=== PATIENT | female | born 1965 | race Hispanic/Latino ===

== ENCOUNTER 2017-05-01 20:40 | Emergency (ER) | payer MEDICAID ==
[2017-05-01] MEDS ORDERED: ACETAMINOPHEN EXTRA STRENGTH 500 MG TABLET ONE (21:32)
[2017-05-01] MEDS ORDERED: KETOROLAC TROMETHAMINE 60 MG/2 ML VIAL ONE (21:32)
[2017-05-01] MEDS ORDERED: DEXAMETHASONE SOD PHOSPHATE 10MG/ML 1ML VIAL ONE (21:32)
== END 2017-05-01 22:33 | disposition home or self-care (01) ==
LOC: EDH 20:40
DX: J10.1 Influenza due to other identified influenza virus with other respiratory manifestations (principal); Z98.51 Tubal ligation status
CPT/HCPCS: 96372 ×2; 99284; J1100; J1885

== ENCOUNTER 2019-05-05 19:45 | Emergency (ER) | payer MEDICAID ==
[2019-05-05 21:06] LABS: APPEARANCE,URINE Cloudy (CLEAR); BILIRUBIN,URINE Negative (NEGATIVE); COLOR,URINE Yellow (YELLOW); GLUCOSE, URINE (UA) TRACE mg/dL (NEGATIVE); KETONES,URINE Negative (NEGATIVE); LEUKOCYTE ESTERASE ,URINE Negative (NEGATIVE); NITRATE,URINE Negative (NEGATIVE); OCCULT BLOOD,URINE Negative (NEGATIVE); PROTEIN,URINE Negative (NEGATIVE); UROBILINOGEN,URINE 0.2 mg/dL (0.2-1.0)
[2019-05-05 21:12] LABS: HCG,QUAL RESULT NEGATIVE (NEGATIVE)
[2019-05-05 21:29] LABS: CALCIUM OXALATE CRYSTALS,UR Moderate /LPF (None Seen)
[2019-05-05 21:31] LABS: BACTERIA,URINE Few /HPF (None Seen); RBC,URINE None Seen /HPF (0-1); WBC,URINE 0-1 /HPF (0-1)
== END 2019-05-05 21:28 | disposition home or self-care (01) ==
LOC: EDH 19:45
DX: M54.5 Low back pain (principal)
CPT/HCPCS: 81001; 81025

== ENCOUNTER 2019-05-06 22:07 | Emergency (ER) | payer MEDICAID | END 2019-05-07 00:06 | disposition home or self-care (01) | LOC: EDH 22:07 | DX: B34.9 Viral infection, unspecified (principal); Z98.890 Other specified postprocedural states | CPT/HCPCS: 87804; 87880 ==

== ENCOUNTER 2022-02-27 21:17 | Emergency (ER) | payer MEDICAID ==
[~2022-02-27] VITALS: Ht 160 cm; Wt 76.7 kg
[~2022-02-27 21:17] MED LIST: HYDR25CA PO
[2022-02-27] MEDS ORDERED: LORAZEPAM 1 MG TABLET PO ONE (23:00)
[2022-02-27] MEDS ORDERED: HYDR-3421 PO (23:00)
[2022-02-27 23:06] VITALS: BP 122/56
== END 2022-02-27 23:26 | disposition home or self-care (01) ==
LOC: EDH 21:17
DX: F41.9 Anxiety disorder, unspecified (principal); E66.9 Obesity, unspecified; Z68.30 Body mass index [BMI] 30.0-30.9, adult

== ENCOUNTER 2023-12-09 05:37 | Day surgery (SDC) | payer MEDICAID ==
[2023-12-04 14:07] LABS: BASOPHILS # (AUTO) 0.02 K/uL (0.00-0.20); BASOPHILS % (AUTO) 0.5 % (0.0-5.0); EOSINOPHILS # (AUTO) 0.04 K/uL (0.00-0.70); HEMATOCRIT 39.5 % (36-48); IMMATURE GRANULOCYTE ABSOLUTE 0.01 K/uL (0-1); LYMPHOCYTES # (AUTO) 2.3 K/uL (1.0-4.8); LYMPHOCYTES % (AUTO) 54.6 % (21.0-51.0); MEAN CORPUSCULAR HEMOGLOBIN 30.8 pg (27.0-33.0); MEAN CORPUSCULAR HGB CONC 33.9 g/dL (32.0-36.0); MEAN CORPUSCULAR VOLUME 90.8 fL (79-99); MONOCYTES # (AUTO) 0.2 K/uL (0.1-1.0); MONOCYTES % (AUTO) 5.1 % (3.0-13.0); NEUTROPHILS # (AUTO) 1.6 K/uL (1.8-7.7); NEUTROPHILS % (AUTO) 38.6 % (40.0-77.0); PLATELET COUNT (AUTO) 210 K/uL (130-400); RED BLOOD CELL COUNT(AUTO) 4.35 MIL/uL (4.00-5.50); RED CELL DISTRIBUTION WIDTH 12.4 % (11.0-15.5); WHITE BLOOD COUNT (AUTO) 4.1 K/uL (4.8-10.8)
[2023-12-04 14:17] LABS: CREATININE 0.6 mg/dL (0.5-1.0); POTASSIUM 3.7 mmol/L (3.5-5.1)
[2023-12-04 14:31] LABS: INR <= 0.93 (0.85-1.15); PROTHROMBIN TIME 10.1 SEC (9.6-11.6)
[2023-12-04 14:40] VITALS: BP 123/85; PULSE 83; RESP 16
[2023-12-09] VITALS (17 sets, daily range): BP systolic 140–158; BP diastolic 77–89; PULSE 61–79; RESP 15–18
[~2023-12-09] VITALS: Ht 160 cm; Wt 76.0 kg
[~2023-12-09 05:37] MED LIST changes: +FAMO-136 PO; -HYDR25CA PO
[2023-12-09] MEDS ORDERED: FAMOTIDINE 20MG VIAL IV ONE (06:35)
[2023-12-09] MEDS ORDERED: acetaMINOPHEN 1,000 MG/100 ML VIAL IV ONE (06:35)
[2023-12-09] MEDS ORDERED: SUGAMMADEX SODIUM 200 MG/2 ML VIAL IV ONE (06:35)
[2023-12-09] MEDS: LACTATED RINGERS 1000ML 1,000 ML IV ONE (06:47)
[2023-12-09] MEDS: ceFAZolin SODIUM 2 GM VIAL ONE (06:47)
[2023-12-09] MEDS ORDERED: MIDAZOLAM HCL 1 MG/ML 2ML VIAL ONE (06:49)
[2023-12-09] MEDS ORDERED: PROPOFOL 10 MG/ML 20ML VIAL IV ONE ×2 (06:49→07:35)
[2023-12-09] MEDS ORDERED: ROCURONIUM BROMIDE 10MG/1ML 5ML VL ONE (06:49)
[2023-12-09] MEDS ORDERED: ONDANSETRON 4MG INJ ONE (06:49)
[2023-12-09] MEDS ORDERED: BUPIvacaine/PF 0.5% 30ML VIAL ONE (06:52)
[2023-12-09] MEDS ORDERED: FENTANYL CITRATE PF 50 MCG/1 ML 2ML VIAL ONE ×2 (07:10→08:04)
[2023-12-09] MEDS ORDERED: DEXAMETHASONE SOD PHOSPHATE 10MG/ML 1ML VIAL ONE (07:18)
[2023-12-09] MEDS: BUPIvacaine/EPI/PF 0.5% 30ML VIAL IJ ONE (07:26)
[2023-12-09] MEDS ORDERED: IOHEXOL-350 50ML VIAL IV ONE (07:51)
[2023-12-09] MEDS ORDERED: GLYCOPYRROLATE 0.2 MG/ML 5 ML VIAL ONE (08:04)
[2023-12-09] MEDS ORDERED: NEOSTIGMINE METHYLSULFATE 1MG/ML IV ONE (08:04)
[2023-12-09] MEDS ORDERED: GABA-529 PO (08:12)
[2023-12-09] MEDS ORDERED: DOCU-116 PO (08:12)
[2023-12-09] MEDS ORDERED: METH-662 PO (08:12)
[2023-12-09] MEDS ORDERED: TRAM50TA4 PO (08:12)
[2023-12-09] MEDS: MEPERIDINE-PF 25 MG/ML SYG ONE ×2 (08:40→09:01)
== END 2023-12-09 10:15 | disposition home or self-care (01) ==
LOC: DAH 05:37
PROVIDERS: ATTEND Surgery
DX: K80.10 Calculus of gallbladder with chronic cholecystitis without obstruction (principal); F41.9 Anxiety disorder, unspecified; F32.A Depression, unspecified; Z98.51 Tubal ligation status; Z79.01 Long term (current) use of anticoagulants; Z79.899 Other long term (current) drug therapy
CPT/HCPCS: 80048; 84703; 85025; 85610; 36415; 47563; 81025; 88304; 74300; A6260; C1727; A4663; J7030; A4215 ×2; J7120; S0028; J3010 ×2; J1100; J3490 ×4; J2250; J2405; J2710; J0665; J2175 ×2; S0020; Q9967 ×2; J0690 ×2; A4649 ×2; A4930 ×2; A4223; A4222; A4221; A4600; C1758; J2704; G0168

== ENCOUNTER 2025-01-12 18:31 | Emergency (ER) | payer MEDICAID ==
[~2025-01-12] VITALS: Ht 160 cm; Wt 75.3 kg
[~2025-01-12 18:31] MED LIST changes: +DOCU-116 PO; +GABA-529 PO; +METH-662 PO; +TRAM50TA4 PO
[2025-01-12 18:34] VITALS: TEMP 97.6
[2025-01-12] MEDS ORDERED: PHEN-776 PO (18:51)
[2025-01-12] MEDS ORDERED: NITR-166 PO (18:51)
--- NOTE | 2025-01-12 18:51 | ERN ---
ED Note History of Present Illness Stated Complaint: DYSURIA Chief Complaint: Painful Urination Time Seen by MD: 18:35 Dictation: 59 year old female presents to ER complains of burning with urination onset today. Denies any fever, blood in urine or flank pain. Allergies: Coded Allergies: No Known Drug Allergies (Unverified Allergy, Unknown, 05/08/19) Home Meds Active Scripts Phenazopyridine HCl (Pyridium) 200 Mg Tablet, 200 MG PO TID for painful urination, #10 TAB 0 Refills Prov:RASTA VELEZ NP 01/12/25 Nitrofurantoin Macrocrystal (Macrodantin) 100 Mg Cap, 1 CAP PO BID for 7 Days, #14 CAP 0 Refills Prov:RASTA VELEZ NP 01/12/25 Methocarbamol (Robaxin) 750 Mg Tab, 500 MG PO TID, #21 TAB 0 Refills Prov:JULIAN GUTHRIE MD 12/09/23 Docusate Sodium (Colace) 100 Mg Capsule, 100 MG PO BID, #30 CAP 0 Refills Prov:JULIAN GUTHRIE MD 12/09/23 Gabapentin (Gabapentin) 100 Mg Capsule, 100 MG PO TID, #21 CAP 0 Refills Prov:JULIAN GUTHRIE MD 12/09/23 Tramadol Hcl (Tramadol HCl) 50 Mg Tablet, 50 MG PO Q6HPRN PRN for PAIN, #28 TAB 0 Refills Prov:JULIAN GUTHRIE MD 12/09/23 Reported Medications Famotidine (Pepcid) 20 Mg Tablet, 20 MG PO AD PRN for HEARTBURN, TAB 12/04/23 Past Medical History Past Medical History: UTI Additional Past Medical Hx: Obesity Surgical History: Cholecystectomy, BTL Surgical History Other: TUBAL LIGATION Family History: Negative Social History: Negative, Lives with family Review of System Dictation Constitutional: Negative for fever,chills, and weight loss Eyes: Negative for injury, pain,redness, and discharge ENT: Negative for injury,pain or swelling Cardiovascular: Negative for chest pain, palpitations, and edema Respiratory: Negative for shortness of breath, cough, wheezing, and pleuritic chest pain Abdomen/GI: Negative for abdominal pain, nausea, vomiting, diarrhea, and constipation Back: Negative for injury and pain : Positive for dysuria MS/Extremity: Negative for injury and deformity Skin: Negative for rash, and discoloration Neuro: Negative for headache, weakness, numbness, tingling, and seizure Psych: Negative for suicide ideation, homicidal ideation, and hallucinations Allergy/Immunology: Negative for hives, rash, and allergies ALL SYSTEMS NEGATIVE, EXCEPT NOTED ABOVE. Initial Vital Sign VS Vital Signs Date Time Temp Pulse Resp B/P (MAP) Pulse Ox O2 Delivery O2 Flow Rate FiO2 01/12/25 18:34 97.5 72 18 139/84 100 Room Air 0 Physical Exam Dictation General: awake, alert, NAD Head/Face: Normocephalic, atraumatic Eyes: PERRL, EOMI, vision at baseline ENT: oral cavity clear, TMs clear, no signs of infection Neck: Trachea midline, supple, no nuchal rigidity Cardiovascular: RRR, normal S1/S2, No MRGs, no JVD Respiratory: CTAB, no respiratory distress, No rales or wheezes Abdomen: Soft, non-tender, non-distended, normal bowel sounds, no guarding or rebound. Skin: Warm, dry, normal turgor, no rash MS/Extremity: Pulses equal, no cyanosis, neurovascular intact, FROM Neuro: COAx4, GCS 15, strength 5/5, CN 2-12 intact, normal cerebellar exam, normal gait, Psych: Normal behavior, mood, and affect normal Results (Laboratory/Radiology) Laboratory/Radiology Laboratory Tests Test 01/12/25 18:50 Urine Color DARK-YELLOW (YELLOW) Urine Appearance CLOUDY (CLEAR) H Urine pH 5.5 (5.0-8.0) Urine Specific Rice 1.014 (1.001-1.031) Urine Protein 20 mg/dL (NEGATIVE) H Urine Glucose (UA) NEGATIVE mg/dL (NEGATIVE) Urine Ketones NEGATIVE mg/dL (NEGATIVE) Urine Occult Blood MODERATE (NEGATIVE) H Urine Nitrate NEGATIVE (NEGATIVE) Urine Bilirubin NEGATIVE mg/dL (NEGATIVE) Urine Urobilinogen 0.2 mg/dL (0.2-1.0) Urine Leukocyte Esterase 500 Royer/uL (NEGATIVE) H ED Course ED Course Orders Procedure Category Date Status Time Urinalysis Profile LAB 01/12/25 Complete 18:41 Ceftriaxone 1g Vial PHA 01/12/25 Complete (Rocephine 1g Inj) 19:00 Culture Urine YANIQUE 01/12/25 Logged 19:06 Current Medications Medications (Trade) Dose Ordered Sig/Winter Route PRN Reason Start Time Stop Time Status Last Admin Dose Admin Ceftriaxone Sodium (ROCEphine 1G INJ) 1 gm NOW ONCE IM 01/12/25 19:00 01/12/25 19:01 DC Vital Signs Date Time Temp Pulse Resp B/P (MAP) Pulse Ox O2 Delivery O2 Flow Rate FiO2 01/12/25 18:34 97.5 72 18 139/84 100 Room Air 0 Medical Decision Making MDM 59 year old female presents to ER complains of burning with urination onset today. Denies any fever, blood in urine or flank pain. MDM: Differential diagnosis: UTI, kidney stone, dysuria, hematuria Rationale: Tests considered and ordered secondary to shared decision making include: labs Previous outside records reviewed: Old ER visits. Risk of complication and/or morbidity or mortality of patient management: None Medications-Per medication reconciliation Need for hospitalization: Patient does NOT meet criteria for hospitalization. Need for emergency major/minor surgery: No There are no social concerns with this patient. Prescription drug management Prescriptions will include symptomatic care Patient's prior external medical records from other ER visits were reviewed by chikis harris as indicated. Prior testing and results from previous visits were reviewed. Prior tests were taken into account with medical decision making and resource utilization, independent historian/historians were used to obtain complete medical history. I independently interpreted the test that were performed, results were reviewed by me and considered findings on radiology if ordered. Patient VSS, NAD, nontoxic, stable for discharge. Pt given discharge instructions in layman terms and understood, all questions answered. Pt will follow up with PCP and return to the ER if worse. DX & DISP Disposition: Discharge Departure Impression: Primary Impression: Urinary tract infection Additional Impression: Dysuria Condition: Stable Scripts Phenazopyridine HCl (Pyridium) 200 Mg Tablet 200 MG PO TID for painful urination, #10 TAB 0 Refills Prov: RASTA VELEZ NP 01/12/25 Nitrofurantoin Macrocrystal (Macrodantin) 100 Mg Cap 1 CAP PO BID for 7 Days, #14 CAP 0 Refills Prov: RASTA VELEZ NP 01/12/25 Additional Instructions: FOLLOW-UP WITH YOUR PCP IN 24-72 HOURS AND IN THE EVENT IF SYMPTOMS WORSEN OR AN EMERGENCY OVERNIGHT REPORT TO THE ED IMMEDIATELY Referrals: PETTY DIAZ MD (PCP) RASTA VELEZ NP Jan 12, 2025 18:51
[2025-01-12 19:00] LABS: APPEARANCE,URINE CLOUDY (CLEAR); GLUCOSE, URINE (UA) NEGATIVE (NEGATIVE); LEUKOCYTE ESTERASE ,URINE 500 Leu/uL (NEGATIVE); NITRATE,URINE NEGATIVE (NEGATIVE); OCCULT BLOOD,URINE MODERATE (NEGATIVE)
[2025-01-12 19:05] LABS: ADD UA MICROSCOPIC YES
[2025-01-12 19:09] LABS: NON-SQUAMOUS EPITHELIAL CELL 1 /HPF (0-2); SQUAMOUS EPITHELIAL CELL,UR FEW /HPF (0-2); UNCLASSIFIED CRYSTAL 1 /HPF (None Seen); WBC CLUMP FEW /HPF (0-1)
[2025-01-12 20:57] VITALS: BP 132/81; PULSE 71; RESP 18; O2SAT 98
[2025-01-17] MEDS ORDERED: LIDO-15 TP (00:01)
== END 2025-01-12 21:00 | disposition home or self-care (01) ==
LOC: EDH 18:31
DX: N39.0 Urinary tract infection, site not specified (principal); R30.0 Dysuria; E66.9 Obesity, unspecified; Z68.29 Body mass index [BMI] 29.0-29.9, adult; Z98.51 Tubal ligation status; Z90.49 Acquired absence of other specified parts of digestive tract; Z87.440 Personal history of urinary (tract) infections; Z79.899 Other long term (current) drug therapy
CPT/HCPCS: 99283; 87086 ×2; 87186; 81001; 96372; J0696